=== PATIENT | female | born 1950 | race Caucasian/White ===

== ENCOUNTER 2022-01-17 06:31 | Day surgery (SDC) | payer MEDICARE, OTHER ==
[~2022-01-17 06:31] MED LIST: Lactated Ringers 1,000 ML IV SCH; Sodium Chloride 0.9% 10 ML Syringe FLUSH PRN
[2022-01-17] MEDS ORDERED: Ondansetron 4 MG/2 ML SDV IVPUSH ONE (06:32)
[2022-01-17] MEDS ORDERED: Glycopyrrolate 0.2 MG/ML 5 ML MDV IV ONE (06:32)
[2022-01-17] MEDS ORDERED: fentaNYL 100 MCG/2 ML SDV IV ONE (06:32)
[2022-01-17] MEDS ORDERED: Midazolam 1 MG/ML 2 ML SDV IV ONE (06:32)
[2022-01-17] MEDS ORDERED: Labetalol 100 MG/20 ML MDV IV ONE (06:32)
[2022-01-17] MEDS ORDERED: Rocuronium 100 MG/10 ML MDV IV ONE (06:32)
[2022-01-17] MEDS ORDERED: Lactated Ringers 1,000 ML IV ONE (06:32)
[2022-01-17] MEDS ORDERED: Propofol 200 MG/20 ML SDV IV ONE (06:32)
[2022-01-17] MEDS ORDERED: Sugammadex Sodium 200 MG/2 ML VIAL IV ONE (06:32)
[2022-01-17] MEDS ORDERED: ceFAZolin 2 GM in Premix Bag 1 BAG IV ONE (08:00)
[2022-01-17] MEDS ORDERED: Bupivacaine 0.5%/EPINEPHrine 1:200,000 10 ML SDV INJECT ONE (08:41)
== END 2022-01-17 11:43 | disposition home or self-care (01) ==
LOC: FB.SDS 06:31
PROVIDERS: ATTEND Surgery
DX: K80.10 Calculus of gallbladder with chronic cholecystitis without obstruction (principal); F41.1 Generalized anxiety disorder; E78.5 Hyperlipidemia, unspecified; F32.9 Major depressive disorder, single episode, unspecified; G47.00 Insomnia, unspecified; I12.9 Hypertensive chronic kidney disease with stage 1 through stage 4 chronic kidney disease, or unspecified chronic kidney disease; E11.22 Type 2 diabetes mellitus with diabetic chronic kidney disease; N18.30 Chronic kidney disease, stage 3 unspecified; Z98.890 Other specified postprocedural states; Z79.899 Other long term (current) drug therapy; Z88.8 Allergy status to other drugs, medicaments and biological substances; Z79.82 Long term (current) use of aspirin; Z79.84 Long term (current) use of oral hypoglycemic drugs
CPT/HCPCS: 00790; 47562; 82947; 88304; 94150; J0690; J2250; J2405; J2704; J3010; J3490; J7120